=== PATIENT | female | born 1940 | race Caucasian/White ===

== ENCOUNTER → 2019-09-20 12:16 | Outpatient (CLI) | payer OTHER, SELFPAY ==
--- NOTE | ~2019-09-20 | MM_ITS ---
EXAMINATION: MM screening [facility] HISTORY: Screening mammogram TECHNIQUE: Craniocaudal and mediolateral oblique 3-D tomosynthesis images were obtained and synthetic 2-D images were generated. CAD analysis was submitted and interpreted. COMPARISON: Comparison to multiple prior studies sequentially, with oldest reviewed study dated 06/25. BREAST PARENCHYMAL COMPOSITION: There are scattered areas of fibroglandular density. FINDINGS: Stable appearance to benign-appearing right breast mass. There is no evidence of suspicious mass, calcification, or architectural distortion to suggest malignancy in either breast. There has b een no suspicious interval change. IMPRESSION: 1. No mammographic evidence of malignancy. 2. Recommend routine screening mammography in one year. BI-RADS Category 2: Benign finding(s). Reviewed, dictated and finalized at location A. ALS BOARD REFEREE
== END ==
PROVIDERS: Visit Provider Obstetrics & Gynecology
DX: Z12.31 Encounter for screening mammogram for malignant neoplasm of breast (principal)
CPT/HCPCS: 77063; 77067

== ENCOUNTER → 2020-10-22 13:36 | Outpatient (CLI) | payer OTHER, SELFPAY ==
--- NOTE | ~2020-10-22 | MM_ITS ---
EXAMINATION: MM screening [facility] BI w [facility]onnell HISTORY: Screening mammogram TECHNIQUE: Craniocaudal and mediolateral oblique 3-D tomosynthesis images were obtained and synthetic 2-D images were generated. CAD analysis was submitted and interpreted. COMPARISON: 09/20/2019, 09/14/2018, 09/01/2017 BREAST PARENCHYMAL COMPOSITION: There are scattered areas of fibroglandular density. FINDINGS: A stable mass of the inner right breast is considered benign given the lack of interval olivia nge. There is no evidence of suspicious mass, calcification, or architectural distortion to suggest m alignancy in either breast. There has been no suspicious interval change. IMPRESSION: 1. No mammographic evidence of malignancy. 2. Recommend routine screening mammography in one year. BI-RADS Category 2: Benign finding(s). Reviewed, dictated and finalized at location A.
== END ==
PROVIDERS: PCP Internal Medicine; Visit Provider Internal Medicine
DX: Z12.31 Encounter for screening mammogram for malignant neoplasm of breast (principal)
CPT/HCPCS: 77063; 77067

== ENCOUNTER 2022-03-19 10:16 | Outpatient (CLI) | payer OTHER, SELFPAY ==
[2022-03-19 18:55] LABS: Alanine Aminotransferase 15 U/L (6-35); Albumin Level 4.1 g/dL (3.5-5.1); Alkaline Phosphatase 157 U/L (38-126); Anion Gap 8 mmol/L (8-16); Aspartate Amino Transferase 27 U/L (14-36); Bilirubin,Total 0.9 mg/dL (0.2-1.3); Blood Urea Nitrogen 19 mg/dL (7-17); Calcium 11.3 mg/dL (8.4-10.2); Carbon Dioxide 28 mmol/L (22-30); Chloride 103 mmol/L (98-107); Cholesterol 204 mg/dL (0-200); Estimated Glomerular Filt Rate 60; Glucose 102 mg/dL (65-110); HDL Direct 47 mg/dL; Potassium 4.4 mmol/L (3.4-5.0); Sodium 139 mmol/L (137-145); Triglycerides 122 mg/dL (<150)
[2022-03-19 19:06] LABS: LDL Cholesterol Direct 114 mg/dL
[2022-03-19 19:38] LABS: Hemoglobin A1C 5.8 % (<5.7)
[2022-03-19 19:56] LABS: Vitamin D 25 Hydroxy 46.4 ng/mL
== END 2022-03-19 10:17 | disposition home or self-care (01) ==
LOC: ANHGOSHLAB 10:24
PROVIDERS: PCP Family Medicine; Visit Provider Family Medicine
DX: E78.2 Mixed hyperlipidemia (principal); I10 Essential (primary) hypertension; E55.9 Vitamin D deficiency, unspecified; R73.01 Impaired fasting glucose
CPT/HCPCS: 36415; 80053; 80061; 82306; 83036

== ENCOUNTER 2023-03-19 11:17 | Outpatient (CLI) | payer MEDICARE, OTHER, SELFPAY ==
[2023-03-19 17:24] LABS: Alanine Aminotransferase 20 U/L (6-35); Alkaline Phosphatase 152 U/L (38-126); Anion Gap 3 mmol/L (8-16); Aspartate Amino Transferase 32 U/L (14-36); Bilirubin,Total 0.4 mg/dL (0.2-1.3); Blood Urea Nitrogen 21 mg/dL (7-17); Calcium 10.6 mg/dL (8.4-10.2); Carbon Dioxide 30 mmol/L (22-30); Chloride 105 mmol/L (98-107); Cholesterol 215 mg/dL (0-200); Estimated Glomerular Filt Rate 60; Glucose 92 mg/dL (65-110); HDL Direct 38 mg/dL; Potassium 4.3 mmol/L (3.4-5.0); Sodium 138 mmol/L (137-145); Triglycerides 240 mg/dL (<150)
[2023-03-19 17:35] LABS: LDL Cholesterol Direct 111 mg/dL
[2023-03-21 05:13] LABS: Parathyroid Intact 134.4 pg/mL (7.5-53.5)
== END 2023-03-19 11:18 | disposition home or self-care (01) ==
PROVIDERS: PCP Family Medicine; Visit Provider Family Medicine
DX: E83.52 Hypercalcemia (principal); Z13.228 Encounter for screening for other metabolic disorders; Z68.30 Body mass index [BMI] 30.0-30.9, adult; E66.09 Other obesity due to excess calories; Z13.220 Encounter for screening for lipoid disorders
CPT/HCPCS: 36415; 80053; 80061; 82310; 83970

== ENCOUNTER 2023-03-22 11:51 | Outpatient (NON) | payer MEDICARE, OTHER, SELFPAY ==
[2023-03-22 13:59] LABS: IFOB Positive Control Positive; Immunochemical Fecal Occult Bl Negative (N)
== END 2023-03-22 11:52 | disposition home or self-care (01) ==
LOC: ANHGOSHLAB 11:52
PROVIDERS: PCP Family Medicine; Visit Provider Family Medicine
DX: E83.52 Hypercalcemia (principal); Z01.818 Encounter for other preprocedural examination
CPT/HCPCS: 82274

== ENCOUNTER 2024-03-24 11:02 | Outpatient (CLI) | payer MEDICARE, OTHER, SELFPAY ==
[2024-03-24 14:40] LABS: Alanine Aminotransferase 17 U/L (6-35); Albumin Level 4.2 g/dL (3.5-5.1); Alkaline Phosphatase 148 U/L (38-126); Anion Gap 7 mmol/L (4-12); Aspartate Amino Transferase 58 U/L (14-36); Bilirubin,Total 0.6 mg/dL (0.2-1.3); Blood Urea Nitrogen 18 mg/dL (7-17); Calcium 11.2 mg/dL (8.4-10.2); Carbon Dioxide 29 mmol/L (22-30); Chloride 103 mmol/L (98-107); Cholesterol 240 mg/dL (0-200); Estimated Glomerular Filt Rate 60; Glucose 103 mg/dL (65-110); HDL Direct 48 mg/dL; Potassium 4.2 mmol/L (3.4-5.0); Sodium 139 mmol/L (137-145); Triglycerides 154 mg/dL (<150)
[2024-03-24 14:51] LABS: LDL Cholesterol Direct 145 mg/dL
[2024-03-24 16:08] LABS: Hemoglobin A1C 5.8 % (<5.7)
[2024-03-24 16:35] LABS: Vitamin D 25 Hydroxy 23.2 ng/mL
== END 2024-03-24 11:03 | disposition home or self-care (01) ==
LOC: ANHGOSHLAB 11:04
PROVIDERS: PCP Family Medicine; Visit Provider Family Medicine
DX: E55.9 Vitamin D deficiency, unspecified (principal); R73.01 Impaired fasting glucose; E78.2 Mixed hyperlipidemia; Z13.228 Encounter for screening for other metabolic disorders
CPT/HCPCS: 36415; 80053; 80061; 82306; 83036

== ENCOUNTER 2024-08-02 11:21 | Outpatient (CLI) | payer MEDICARE, OTHER, SELFPAY ==
[2024-08-02 13:22] LABS: Vitamin D 25 Hydroxy 32.6 ng/mL
[2024-08-02 13:28] LABS: Anion Gap 5 mmol/L (4-12); Blood Urea Nitrogen 20 mg/dL (7-17); Calcium 11.4 mg/dL (8.4-10.2); Carbon Dioxide 30 mmol/L (22-30); Chloride 105 mmol/L (98-107); Estimated Glomerular Filt Rate 57; Glucose 101 mg/dL (65-110); Potassium 4.2 mmol/L (3.4-5.0); Sodium 140 mmol/L (137-145)
[2024-08-02 13:33] LABS: Parathyroid Intact 91.2 pg/mL (14.5-75.2)
== END 2024-08-02 11:22 | disposition home or self-care (01) ==
LOC: ANHGOSHLAB 11:23
PROVIDERS: PCP Clinical Nurse Specialist; Visit Provider Clinical Nurse Specialist
DX: E83.52 Hypercalcemia (principal); I10 Essential (primary) hypertension
CPT/HCPCS: 36415; 80048; 82306; 83970

== ENCOUNTER 2024-11-01 12:34 | Outpatient (CLI) | payer MEDICARE, OTHER, SELFPAY ==
[2024-11-01 19:35] LABS: Anion Gap 8 mmol/L (4-12); Blood Urea Nitrogen 20 mg/dL (7-17); Carbon Dioxide 27 mmol/L (22-30); Chloride 104 mmol/L (98-107); Estimated Glomerular Filt Rate 55; Glucose 86 mg/dL (65-110); Potassium 4.2 mmol/L (3.4-5.0); Sodium 139 mmol/L (137-145)
[2024-11-03 12:34] LABS: Ionized Calcium 5.8 mg/dL (4.7-5.5)
[2024-11-08 03:39] LABS: Parathyroid Hormone Related Pr 13 pg/mL (11-20)
== END 2024-11-01 12:35 | disposition home or self-care (01) ==
LOC: ANHGOSHLAB 12:36
PROVIDERS: PCP Clinical Nurse Specialist; Visit Provider Clinical Nurse Specialist
DX: E83.52 Hypercalcemia (principal)
CPT/HCPCS: 36415; 80048; 82330; 83519; 83970

== ENCOUNTER 2025-03-27 11:32 | Outpatient (CLI) | payer MEDICARE, SELFPAY ==
[2025-03-27 15:21] LABS: Hematocrit 44.1 % (37.0-47.0); Hemoglobin 14.0 g/dL (12.0-15.0); Immature Granulocyte Percent A 0.2 % (0-0.5); Lymphocytes Absolute Auto 2.95 K/mm3 (0.9-3.2); Mean Corpuscular HGB Conc 31.7 g/dl (32-36); Mean Corpuscular Hemoglobin 29.4 pg (26-34); Mean Corpuscular Volume 92.6 fl (80-100); Nucleated Red Blood Cells Absolute Auto 0.000 K/mm3 (0.0-0.012); Nucleated Red Blood Cells Perc 0.0 % (0.0-0.2); Platelet Count Result 336 k/mm3 (150-375); Red Blood Count 4.76 M/mm3 (4.2-5.4); White Blood Count 8.1 K/mm3 (4.5-10.0)
[2025-03-27 16:04] LABS: Hemoglobin A1C 5.7 % (<5.7)
[2025-03-27 16:13] LABS: Alanine Aminotransferase 15 U/L (6-35); Albumin Level 4.4 g/dL (3.5-5.1); Alkaline Phosphatase 162 U/L (38-126); Anion Gap 7 mmol/L (4-12); Aspartate Amino Transferase 45 U/L (14-36); Bilirubin,Total 0.6 mg/dL (0.2-1.3); Blood Urea Nitrogen 17 mg/dL (7-17); Calcium 11.5 mg/dL (8.4-10.2); Carbon Dioxide 26 mmol/L (22-30); Chloride 105 mmol/L (98-107); Cholesterol 252 mg/dL (0-200); Estimated Glomerular Filt Rate 53; Glucose 102 mg/dL (65-110); HDL Direct 44 mg/dL; Potassium 4.6 mmol/L (3.4-5.0); Sodium 138 mmol/L (137-145); Total Protein 8.2 g/dL (6.3-8.2); Triglycerides 181 mg/dL (<150)
[2025-03-27 16:20] LABS: Parathyroid Intact 101.3 pg/mL (14.5-75.2)
[2025-03-27 16:49] LABS: Thyroid Stimulating Hormone 1.510 uIU/mL (0.465-4.680)
[2025-03-28 16:08] LABS: Calcium, Ionized 6.1 mg/dL (4.5-5.6)
== END 2025-03-27 11:33 | disposition home or self-care (01) ==
LOC: ANHGOSHLAB 11:32
PROVIDERS: PCP Clinical Nurse Specialist; Visit Provider Clinical Nurse Specialist
DX: Z13.29 Encounter for screening for other suspected endocrine disorder (principal); I10 Essential (primary) hypertension; E78.2 Mixed hyperlipidemia; E83.52 Hypercalcemia; N39.3 Stress incontinence (female) (male); R73.01 Impaired fasting glucose
CPT/HCPCS: 36415; 80053; 80061; 82330; 83036; 83970; 84443; 85025